=== PATIENT | female | born 1990 ===

== ENCOUNTER 2023-10-12 13:45 | Outpatient (CLI) | payer OTHER ==
--- NOTE | 2023-10-12 15:12 | XRAY Report ---
PROCEDURE: Chest 2 View X-Ray INDICATIONS: COUGH TECHNIQUE: 2 views of the chest were acquired. COMPARISON: None. FINDINGS: Surgical changes and devices: None. Lungs and pleura: No pleural effusions or pneumothorax. Lungs are clear. Mediastinum: Mediastinal contours appear normal. Heart size is normal. Bones and chest wall: No suspicious bony lesions. Overlying soft tissues appear unremarkable. IMPRESSION: No acute cardiopulmonary process. Reviewed by: Vic Higginbotham MD on 10/12/2023 3:11 PM [facility] Approved by: Vic Higginbotham MD on 10/12/2023 3:11 PM [facility] Station ID: [id number]
== END 2023-10-12 14:00 | disposition home or self-care (01) ==
LOC: DI.N 13:45
PROVIDERS: ATTEND Family Medicine
DX: R05.9 Cough, unspecified (principal)